=== PATIENT | female | born 2000 | race African-American/Black ===

== ENCOUNTER 2024-04-24 14:03 | Emergency (ER) | payer MEDICAID, OTHER ==
[~2024-04-24] VITALS: Ht 157.5 cm; Wt 80.0 kg
[2024-04-24 14:09] VITALS: O2SAT 100
[2024-04-24 14:36] LABS: BASOPHILS % 0.6 % (0.0-2.0); DIFFERENTIAL COMMENT 0; EOSINOPHILS % 1.1 % (0.0-5.0); HEMATOCRIT. 46.1 % (36.0-48.0); HEMOGLOBIN. 14.6 g/dL (12.0-16.0); LYMPHOCYTES % 12.2 % (20.0-50.0); MEAN CORPUSCULAR HEMOGLOBIN 25.2 pg (28.0-32.0); MEAN CORPUSCULAR HGB CONC 31.7 g/dL (31.0-37.0); MEAN CORPUSCULAR VOLUME 79.5 fL (81.0-99.0); MEAN PLATELET VOLUME 7.4 fl (7.4-10.4); MONOCYTES % 2.7 % (2.0-8.0); NEUTROPHILS % 83.4 % (40.0-76.0); PLATELET 373 x1000/uL (130-400); RED CELL DISTRIBUTION WIDTH 16.8 % (11.6-14.6); WHITE BLOOD COUNT 11.6 x1000/uL (4.5-11.0)
[2024-04-24 14:37] LABS: CHLORIDE 104 mEq/L (98-107); SODIUM 137 mEq/L (136-145)
[2024-04-24 14:38] LABS: CALCIUM 10.2 mg/dL (8.7-10.4); CARBON DIOXIDE 24 mEq/L (21-32)
[2024-04-24 14:43] LABS: CREATININE 0.8 mg/dL (0.6-1.0); GLUCOSE 85 mg/dL (70-105); UREA NITROGEN BLOOD 9 mg/dL (9-23)
[2024-04-24 14:45] LABS: ACETAMINOPHEN 9 ug/mL (10-30); ALANINE AMINOTRANSFERASE 11 IU/L (10-49); ALBUMIN 5.3 g/dL (3.2-4.8); ASPARTATE AMINOTRANSFERASE 22 IU/L (<34); BILIRUBIN DIRECT 0.5 mg/dL (<=3.0); BILIRUBIN TOTAL 1.8 mg/dL (0.1-1.0); PROTEIN TOTAL 8.7 g/dL (6.0-8.3)
[2024-04-24 14:46] LABS: HCG SCREEN NEGATIVE
[2024-04-24 14:47] LABS: ETHANOL BLOOD < 10 mg/dL (<10)
[2024-04-24 15:06] LABS: CLARITY URINE CLOUDY (CLEAR); COLOR URINE DARK YELLOW (YELLOW); GLUCOSE URINE NEGATIVE (NEGATIVE); KETONES URINE 3+ (NEGATIVE); LEUKOCYTE ESTERASE URINE 2+ (NEGATIVE); NITRITE URINE NEGATIVE (NEGATIVE); OCCULT BLOOD URINE NEGATIVE (NEGATIVE); PH URINE 5.5 (4.5-8.0); PROTEIN URINE 2+ (NEGATIVE); SPECIFIC GRAVITY URINE 1.041 (1.005-1.030)
[2024-04-24 15:18] LABS: SQUAMOUS EPITHELIAL CELL URINE 3+ /lpf (RARE/1+)
[2024-04-24 15:19] LABS: BACTERIA URINE 4+; YEAST URINE NONE SEEN
[2024-04-24] MEDS: SODIUM CHLORIDE 0.9% 1,000 ML IV ONE (15:19)
[2024-04-24 15:24] LABS: *AMPHETAMINES SCREEN URINE NEGATIVE (NEGATIVE); *BARBITURATES SCREEN URINE NEGATIVE (NEGATIVE); *BENZODIAZEPINES SCREEN URINE NEGATIVE (NEGATIVE); *COCAINE SCREEN URINE NEGATIVE (NEGATIVE); CANNABINOID URINE SCREEN NEGATIVE (NEGATIVE); ECSTASY MDMA SCREEN URINE NEGATIVE (NEGATIVE); METHADONE URINE SCREEN NEGATIVE (NEGATIVE); OPIATES URINE SCREEN NEGATIVE (NEGATIVE); PHENCYCLIDINE URINE SCREEN NEGATIVE (NEGATIVE)
[2024-04-24] MEDS: NITROFURANTOIN 100MG M/M CAPSULE PO STA (19:04)
[2024-04-24 19:19] LABS: CHLORIDE 107 mEq/L (98-107); SODIUM 139 mEq/L (136-145)
[2024-04-24 19:20] LABS: CALCIUM 9.4 mg/dL (8.7-10.4); CARBON DIOXIDE 23 mEq/L (21-32)
[2024-04-24 19:25] LABS: CREATININE 0.7 mg/dL (0.6-1.0); GLUCOSE 79 mg/dL (70-105); UREA NITROGEN BLOOD 7 mg/dL (9-23)
[2024-04-24 19:27] LABS: ACETAMINOPHEN 16 ug/mL (10-30); ALANINE AMINOTRANSFERASE 9 IU/L (10-49); ALBUMIN 4.8 g/dL (3.2-4.8); ASPARTATE AMINOTRANSFERASE 17 IU/L (<34); BILIRUBIN TOTAL 1.2 mg/dL (0.1-1.0)
[2024-04-24 19:28] LABS: PROTEIN TOTAL 7.8 g/dL (6.0-8.3)
[2024-04-25 14:12] VITALS: BP 123/83; PULSE 79; RESP 13; TEMP 98.2
== END 2024-04-25 18:39 | disposition short-term general hospital (02) ==
LOC: ER 14:03
DX: R45.851 Suicidal ideations (principal); N39.0 Urinary tract infection, site not specified; I49.9 Cardiac arrhythmia, unspecified; Z20.822 Contact with and (suspected) exposure to COVID-19
CPT/HCPCS: 80076; 80053; 80305; 80048; 81003; 81025; 80307; 80329; 80320; 84703; 85025; 36415; 93005; 96360; 96361; 99285; 87426; J7030; Z7610 ×3; G0480